=== PATIENT | male | born 1985 | race African-American/Black ===

== ENCOUNTER 2021-12-20 01:06 | Emergency (ER) | payer OTHER ==
[~2021-12-20] VITALS: Ht 182.9 cm; Wt 83.0 kg
[2021-12-20 01:50] LABS: *BILIRUBIN,URIN NEGATIVE (NEGATIVE); *CLARITY,URINE CLEAR (CLEAR); *COLOR,URINE YELLOW (YELLOW); *KETONES,URINE 1+ (NEGATIVE); *UROBILINOGEN,URINE 0.2 E.U./dl (NORMAL); LEUKOCYTE ESTERASE ,URINE NEGATIVE (NEGATIVE); NITRITE, URINE NEGATIVE (NEGATIVE); PH,URINE 5.5 (5.0-8.0); UGLUCOSE NEGATIVE (NEGATIVE)
[2021-12-20 01:56] LABS: *BLOOD, URINE TRACE LYSED (NEGATIVE)
--- NOTE | 2021-12-20 02:00 | NUR ---
Dr Rawls in room for BARAK
[2021-12-20 02:04] LABS: *AMPHETAMINE, URINE POSITIVE (NEGATIVE); *CANNABINOID, URINE POSITIVE (NEGATIVE); *COCCAINE, URINE NEGATIVE (NEGATIVE); *OPIATE, URINE NEGATIVE (NEGATIVE); *PHENCYCLIDINE SCREEN,URINE NEGATIVE (NEGATIVE)
[2021-12-20 02:12] LABS: CARBON DIOXIDE 27 mmol/L (21-32); CHLORIDE 100 mmol/L (98-107); CREATININE 1.2 mg/dL (0.6-1.3); GLUCOSE 82 mg/dL (74-106); POTASSIUM 4.2 mmol/L (3.5-5.1); UREA NITROGEN, BLOOD 20 mg/dL (7-18)
[2021-12-20 02:18] LABS: ACETAMINOPHEN < 2.0 ug/mL (10-30); ALANINE AMINOTRANSFERASE 62 U/L (16-63); ALKALINE PHOSPHATASE 57 U/L (50-136); ASPARTATE AMINOTRANSFERASE 141 U/L (15-37); BILIRUBIN,DIRECT 0.3 mg/dL (0.0-0.2); BILIRUBIN,TOTAL 1.6 mg/dL (0.2-1.0); TOTAL PROTEIN, SERUM 9.1 g/dL (6.4-8.2)
[2021-12-20 02:22] LABS: HEMATOCRIT 40.2 % (36.7-47.1); MEAN CORPUSCULAR HEMOGLOBIN 30.5 uug (23.8-33.4); MEAN CORPUSCULAR VOLUME 91.7 fL (73.0-96.2); PLATELET COUNT (AUTO) 323 K/uL (152-348)
[2021-12-20 02:24] LABS: ETHANOL < 3 MG/DL (0-0)
--- NOTE | 2021-12-20 02:50 | NUR ---
patient is a/ox3, NAD noted. Patient is able to walk with steady gait
--- NOTE | 2021-12-20 04:10 | NUR ---
Patient is anxious trying to get out of the room
--- NOTE | 2021-12-20 04:11 | NUR ---
called security. Patient is anxious stating "someone is out to get me"
[2021-12-20] MEDS ORDERED: OLANZAPINE 10 MG VIAL IM ONE ×2 (04:14→04:15)
--- NOTE | 2021-12-20 04:25 | NUR ---
security at bedside
--- NOTE | 2021-12-20 04:37 | NUR ---
Jeronimo cedeno in [facility] - 12/20/21 at 0437 by CRYS PA
[2021-12-20] MEDS ORDERED: HALOPERIDOL LACTATE 5 MG/1 ML VIAL ONE (06:23)
[2021-12-20] MEDS ORDERED: LORAZEPAM 2 MG/1 ML VIAL ONE (06:24)
[2021-12-20] MEDS ORDERED: LORAZEPAM 2 MG/1 ML VIAL IM ONE (06:30)
[2021-12-20] MEDS ORDERED: HALOPERIDOL LACTATE 5 MG/1 ML VIAL IM ONE (06:30)
--- NOTE | 2021-12-20 06:33 | NUR ---
security at bedside
--- NOTE | 2021-12-20 07:04 | NUR ---
report given to Rosanne MARTINEZ
--- NOTE | 2021-12-20 07:10 | NUR ---
Recieved pt in bed resting w/ both eyes closed, no acute distress noted at this time.
--- NOTE | 2021-12-20 13:40 | NUR ---
Lunch tray provided, pt denies N/V and abdominal pain.
[2021-12-20] MEDS ORDERED: ALBU8.5H8 INH (14:58)
--- NOTE | 2021-12-20 15:50 | NUR ---
Patient given written and verbal discharge instructions. Patient verbalizes understanding of instructions. Patient is ambulatory with steady gait. Refuses offer of snf placement. Patient given list of available shelters in surrounding area.
[2021-12-20 15:51] VITALS: BP 112/77
[2021-12-20 18:47] LABS: BACTERIA,URINE NONE SEEN /HPF (NONE SEEN); RBC,URINE 0-3 /HPF (0-3); SQUAMOUS EPITHELIAL CELL,UR NONE SEEN /HPF (NONE SEEN); WBC,URINE NONE SEEN /HPF (0-3)
== END 2021-12-20 15:52 | disposition home or self-care (01) ==
LOC: ER 01:10
DX: R10.9 Unspecified abdominal pain (principal); K92.1 Melena; F20.9 Schizophrenia, unspecified; Z59.00 Homelessness unspecified; F22 Delusional disorders
CPT/HCPCS: 36415; 80048; 80076; 80299; 80307; 80320; 81001; 83690; 85025; 85730; 96372 ×2; 99284; J1630; J2060; A4663; G0480; J2358

== ENCOUNTER 2022-07-08 02:40 | Emergency (ER) | payer OTHER ==
[~2022-07-08 02:40] MED LIST: ALBU8.5H8 INH
--- NOTE | 2022-07-08 02:44 | NUR ---
Pt not in waiting room.
== END 2022-07-08 02:45 | disposition left against medical advice (07) ==
LOC: ER 02:40
DX: Z53.21 Procedure and treatment not carried out due to patient leaving prior to being seen by health care provider (principal)